=== PATIENT | female | born 1955 | race Caucasian/White ===

== ENCOUNTER 2019-04-18 08:38 | Day surgery (SDC) | payer BC ==
[2019-04-18] VITALS (11 sets, daily range): BP systolic 114–147; BP diastolic 53–72; PULSE 51–61; TEMP 97.2–98.2
[~2019-04-18] VITALS: Ht 165.1 cm; Wt 100.0 kg
[~2019-04-18 08:38] MED LIST: CEFTIN500 MG PO; ELIQUIS 5MG PO; FOLIC ACID0.8 MG PO; INDERAL80 MG PO; LASIX 20MG TABL20 MG PO; LIORESAL 1010 MG/TAB PO; MAGNESIUM500 MG PO; METHOTREXA2.5 MG/TAB PO; MIRALAX PA17 GM/Dose PO; MYCELEX10 MG/TAB TL; NYSTATIN POWDER15 GM TOP; PERCOCET 325 MG1 TA2 PO; PERIDEX (CHLOR480 ML MM; PRILOSEC 20MG20 MG PO; SYMMETREL100 MG PO; SYNTHROID0.088 MG/T PO; TAMOXIFEN CITRA20 MG PO; VESICARE10 MG PO; VITAMIN D31000 I1 PO
[2019-04-18] MEDS ORDERED: NEURONTIN300 MG/CAP PO (10:30)
--- NOTE | 2019-04-18 17:30 | NUR ---
Patient alert and oriented, answers questions appropriately. See assessment. Suprapubic catheter in place, secured to leg and draining bloody drainage. Weakness noted to right side. Patient is wheelchair bound. No c/o at this time.
--- NOTE | 2019-04-19 01:16 | NUR ---
Patient noted to have suprapubic catheter to lower abdomen. Draining red, slightly bloody drainage. Minimal clots noted. Awaiting patient to have a bowel movement. No results from mag citrate yet. Will continue to monitor patient. Patient repositioned q2 hours.
[2019-04-19 03:44] VITALS: BP 130/62; PULSE 65; TEMP 98
--- NOTE | 2019-04-19 06:13 | NUR ---
Urine noted to be yellow from suprapubic catheter. No bowel movement at this time. Will pass this on to day shift nurse.
--- NOTE | 2019-04-19 08:00 | NUR ---
Patient in bed resting. Alert and oriented x 3. Shift assessment complete. Patient had a large BM this AM, pericare provided. Suprapubic cath with clear yellow urine present. Gauze dressing to catheter cite is CDI. Denies pain or further needs at this time.
[2019-04-19 08:44] VITALS: BP 131/58; PULSE 69; TEMP 98.3
[2019-04-19 12:37] VITALS: BP 113/56; PULSE 65; TEMP 97.6
--- NOTE | 2019-04-19 14:00 | NUR ---
Discharge education provided to patient on suprapubic catheter. Educated on signs and symptoms of infection as well as constipation. All questions answered. Patient to wheelchair by saira lift x 2 assist. Denies pain or further needs at this time. INT to left hand discontinued. Catheter tip intact. Tolerated procedrure well.
--- NOTE | 2019-04-19 15:19 | NUR ---
Plan: To return home in [facility] with her care provider Romain and DPOA. Assess: Patient reports that she sees Dr. Neal as her PCP and has various DME, motorized chairm left at home , swing, and bed. Patient indicated that she uses [facility] for medications in [place]. Transportation is provided by Mr. Hoyos. Patient declined the need for HHS. Action: Nothing follows.
== END 2019-04-19 14:00 | disposition home or self-care (01) ==
LOC: SDCO 08:38 → SURG 12:33 → SDCO 04-19 14:00
DX: N31.9 Neuromuscular dysfunction of bladder, unspecified (principal); N39.41 Urge incontinence; N30.20 Other chronic cystitis without hematuria; G35 Multiple sclerosis; N32.81 Overactive bladder; I10 Essential (primary) hypertension; K21.9 Gastro-esophageal reflux disease without esophagitis; Z80.3 Family history of malignant neoplasm of breast; Z87.440 Personal history of urinary (tract) infections; Z90.710 Acquired absence of both cervix and uterus; Z90.6 Acquired absence of other parts of urinary tract; Z79.01 Long term (current) use of anticoagulants; Z88.1 Allergy status to other antibiotic agents; Z88.8 Allergy status to other drugs, medicaments and biological substances; Z88.3 Allergy status to other anti-infective agents; Z88.7 Allergy status to serum and vaccine; Z91.048 Other nonmedicinal substance allergy status; Z86.718 Personal history of other venous thrombosis and embolism; Z85.3 Personal history of malignant neoplasm of breast
CPT/HCPCS: OP; C1769; J0690; J2405; J2704; J3010; J7120

== ENCOUNTER 2019-07-22 11:47 | Emergency (ER) | payer BC ==
[~2019-07-22 11:47] MED LIST changes: +NEURONTIN300 MG/CAP PO
[2019-07-22 11:57] VITALS: TEMP 95.7
[2019-07-22 16:14] VITALS: BP 128/71; PULSE 62
== END 2019-07-22 16:16 | disposition home or self-care (01) ==
LOC: COL.ER 11:47
DX: T83.198A Other mechanical complication of other urinary devices and implants, initial encounter (principal); E03.9 Hypothyroidism, unspecified; Z86.718 Personal history of other venous thrombosis and embolism; Z90.710 Acquired absence of both cervix and uterus
CPT/HCPCS: 3306; C1769

== ENCOUNTER 2019-08-12 16:05 | Day surgery (SDC) | payer BC ==
[~2019-08-12] VITALS: Ht 165.1 cm; Wt 109.0 kg
--- NOTE | 2019-08-12 15:52 | NUR ---
Dr. Smith here for suprapubic catheter change.
--- NOTE | 2019-08-12 16:15 | NUR ---
Dr. Smith is done with the procedure and the patient verbalizes a desire to be discharged home. The patient denies wanting any to eat or drink before going home. The patient was assisted to get dressed with the help of two nurses and appeared to tolerate the activity well. The patient was transferred back to the home wheelchair with the use of a total lift and appeared to tolerate the activity well. The patient's assisted the nurse to get the patient situated in her wheelchair appropriately.
--- NOTE | 2019-08-12 16:20 | NUR ---
Discharge instructions were reviewed with the patient and her . They both verbalized understanding and have no questions for the nurse at this time. The patient is dressed and had no IV in place for the procedure to be removed so she is ready to be escorted out.
--- NOTE | 2019-08-12 16:25 | NUR ---
The patient was escorted out via her home wheelchair to a private vehicle by IVONNE Forbes. The patient's belongings and discharge paperwork were sent with him. The patient's is present to drive her home.
== END 2019-08-12 16:25 | disposition home or self-care (01) ==
LOC: SDCO 16:05
DX: T83.29XA Other mechanical complication of graft of urinary organ, initial encounter (principal); N31.9 Neuromuscular dysfunction of bladder, unspecified; N39.41 Urge incontinence; R35.0 Frequency of micturition; G35 Multiple sclerosis; Z85.3 Personal history of malignant neoplasm of breast; Z90.710 Acquired absence of both cervix and uterus; Z90.5 Acquired absence of kidney; Z79.899 Other long term (current) drug therapy; Z80.9 Family history of malignant neoplasm, unspecified; Z83.3 Family history of diabetes mellitus; Z82.49 Family history of ischemic heart disease and other diseases of the circulatory system

== ENCOUNTER 2019-08-26 09:26 | Inpatient (IN) | payer BC ==
[~2019-08-26] VITALS: Ht 165.1 cm; Wt 112.1 kg
[2019-08-26 10:13] LABS: HEMATOCRIT 46.6 % (37.0-47.0); HEMOGLOBIN 15.2 g/dl (12.5-16.0); MEAN CELL VOLUME 94 fl (80.0-100.0); MEAN CORPUSCULAR HEMOGLOBIN 31 pg (27.0-31.0); MEAN CORPUSCULAR HGB CONC 33 g/dl (33.0-37.0); MEAN PLATELET VOLUME 10.5 fl (7.4-10.4); PLATELET COUNT 286 K/mm3 (130-400); RED BLOOD COUNT 4.95 M/mm3 (4.10-5.30); REDCELL DISTRIBUTION WIDTH-CV 17.5 % (11.5-14.5)
[2019-08-26 10:39] LABS: BAND 1 % (0-10); EOSINOPHIL 1 % (0-4); LYMPHOCYTE 8 % (20.0-51.0); NEUTROPHILS 81 % (42.0-75.2); PLATELET ESTIMATE NORMAL (NORMAL)
[2019-08-26 10:43] LABS: COLLECTION METHOD CATHETER
[2019-08-26] MEDS ORDERED: TEGRETOL 2200 MG/TA1 PO (10:50)
[2019-08-26 10:56] LABS: MUCOUS Present /lpf; PH 7 (5-8); SQUAMOUS EPITHELIAL None Seen /hpf; URINE APPEARANCE Hazy; URINE BACTERIA Many /hpf; URINE BILIRUBIN Negative (NEGATIVE); URINE BLOOD 3+ (NEGATIVE); URINE COLOR Yellow; URINE GLUCOSE Negative (NEGATIVE); URINE KETONE Negative (NEGATIVE); URINE LEUKOCYTE ESTERASE 3+ (NEGATIVE); URINE NITRATE Negative (NEGATIVE); URINE PROTEIN(semi-quant) Negative (NEGATIVE); URINE RBC >50 /hpf; URINE UROBILINOGEN Negative (NEGATIVE)
[2019-08-26 13:12] LABS: ALBUMIN 3.4 gm/dL (3.5-5.0); BILIRUBIN,TOTAL 0.4 mg/dL (0.0-1.0); CALCIUM 9.1 mg/dL (8.4-10.2); CREATININE, serum 0.88 (0.52-1.25); TOTAL PROTEIN 6.7 gm/dL (6.4-8.2)
[2019-08-26 15:34] VITALS: BP 140/90; PULSE 104; TEMP 97.8
--- NOTE | 2019-08-26 15:34 | NUR ---
Patient arrives to medical room 357 via ED cart and is transferred to bed. Assessment and vitals as charted. Care assumed.
[2019-08-26] MEDS ORDERED: NORCO 325 MG-51 TAB PO (15:50)
[2019-08-26] MEDS ORDERED: OMNICEF 300MG300 MG PO (15:51)
--- NOTE | 2019-08-26 16:02 | NUR ---
Dr. Murphy notified of patient arrival
[2019-08-26 16:15] VITALS: BP 140/90; PULSE 103; TEMP 97.8
[2019-08-26 19:40] VITALS: BP 132/72; PULSE 106; TEMP 99
--- NOTE | 2019-08-26 20:00 | NUR ---
Report received from IVONNE Ridley. Assessment complete. Alert and oriented x4. Drowsy but arousable. Denies any pain or discomfort at this time. Meds administered as ordered. PICC to MOHAN intact with fluids infusing. RT arm restiction in place. Suprapubic and indwelling fernandez catheter in place. Dressing to suprapubic CDI.Needs met at this time. Call light in place.
[2019-08-27] VITALS (7 sets, daily range): BP systolic 125–159; BP diastolic 72–92; PULSE 71–124; TEMP 98–98.2
--- NOTE | 2019-08-27 05:45 | NUR ---
Pt unevenful during this shift. Meds administered as ordered. Gill draining and checked. Denies any pain or discomfort at this time. alert and arousable. oriented to self, place, and situation. Unnable to verbalie current year. Call light juany kwok.
[2019-08-27 06:37] LABS: CALCIUM 8.8 mg/dL (8.4-10.2); CREATININE, serum 0.73 (0.52-1.25); POTASSIUM 3.4 mmol/L (3.4-5.0)
[2019-08-27 06:43] LABS: BASO % 0.3 % (0.0-2.0); EOS # 0.1 (0.0-0.7); EOS % 0.8 % (0-4.0); GRAN # 7.6 (1.4-6.5); GRAN % 68.3 % (42.2-75.2); LYMPH # 2.1 (1.2-3.4); LYMPH % 18.9 % (20.0-51.0); MEAN CELL VOLUME 96 fl (80.0-100.0); MEAN CORPUSCULAR HGB CONC 32 g/dl (33.0-37.0); MEAN PLATELET VOLUME 10.7 fl (7.4-10.4); MONO # 1.3 (0.1-0.6); MONO % 11.3 % (1.7-9.3); PLATELET COUNT 261 K/mm3 (130-400); RED BLOOD COUNT 3.82 M/mm3 (4.10-5.30); REDCELL DISTRIBUTION WIDTH-CV 17.7 % (11.5-14.5)
[2019-08-27 06:45] LABS: HEMATOCRIT 36.5 % (37.0-47.0); HEMOGLOBIN 11.7 g/dl (12.5-16.0); MEAN CORPUSCULAR HEMOGLOBIN 31 pg (27.0-31.0)
--- NOTE | 2019-08-27 07:09 | NUR ---
Report given to IVONNE Borrego.
--- NOTE | 2019-08-27 08:16 | NUR ---
Patient resting in bed at this time. Awakens easily but is drowsy between conversations. Patient is alert and oriented x 3; only missing the day of the month. She denies any c/o pain and/or discomfort. Skin w/d. Color pink. Lungs CTA with resp even/unlabored. HR strong/tachy in nature. Abd obese, soft with bowel sounds x 4 quads. PPP. Mild non-pitting edema. Gill patent with clear yellow urine. Patient also has supra pubic that is intact but has no urine output. patient has consult with urology. IV fluids infusing at 150/hr. Patient resting comfortable. Call light in place. Bed rails up x 2
--- NOTE | 2019-08-27 13:25 | NUR ---
Patient off the floor at this time for CT scan
--- NOTE | 2019-08-27 13:51 | NUR ---
Guest Services Manager met with patient and called patient's , Sidney (ph#[phone]) to complete initial intake and discuss discharge plan. Patient lives in [place] with her and sees Dr. Neal for primary care. Patient uses a power chair and reports that to get into power chair, patient requires a sling and lift. Patient does not have Advance Directives in EMR and patient's reports if he can locate a copy he will bring it in. Patient's states he is hopeful patient can return home upon discharge. SW to continue to follow to ensure safe discharge.
--- NOTE | 2019-08-27 15:15 | NUR ---
Called to patients room by staff. Patient yelling out in pain. When questioned patient she could not localize pain but was able to tell this nurse that she was hurting. Call placed to MARC Appiah who is coming to see patient.
--- NOTE | 2019-08-27 15:45 | NUR ---
Patient given Baclofen as per orders.
--- NOTE | 2019-08-27 16:47 | NUR ---
1610 - No relief with Baclofen at this time. Patient given Hydrocodone as per PRN orders. Will continue to monitor pain and the relief recieved from medication
--- NOTE | 2019-08-27 18:04 | NUR ---
Dr. Schwab called for reminder of consult written yesterday by Dr. Murphy. Dr Schwab will discuss with Dr. Smith and a provider will see the patient.
--- NOTE | 2019-08-27 18:07 | NUR ---
Patient states pain is much better. Rates pain 2/10 at this time. IV fluids continue. Gill continues to drain clear yellow urine. No output thus far from supra pubic catheter
[2019-08-28 03:36] VITALS: BP 132/50; PULSE 84
[2019-08-28 05:52] LABS: BASO # 0.1 (0.0-0.2); BASO % 0.4 % (0.0-2.0); EOS # 0.2 (0.0-0.7); EOS % 1.5 % (0-4.0); GRAN % 64.8 % (42.2-75.2); HEMOGLOBIN 10.3 g/dl (12.5-16.0); LYMPH # 2.6 (1.2-3.4); LYMPH % 20.6 % (20.0-51.0); MEAN CELL VOLUME 95 fl (80.0-100.0); MEAN CORPUSCULAR HEMOGLOBIN 30 pg (27.0-31.0); MEAN CORPUSCULAR HGB CONC 32 g/dl (33.0-37.0); MEAN PLATELET VOLUME 10.6 fl (7.4-10.4); MONO # 1.5 (0.1-0.6); MONO % 12.1 % (1.7-9.3); PLATELET COUNT 215 K/mm3 (130-400); RED BLOOD COUNT 3.43 M/mm3 (4.10-5.30); REDCELL DISTRIBUTION WIDTH-CV 17.3 % (11.5-14.5)
[2019-08-28 05:53] LABS: HEMATOCRIT 32.6 % (37.0-47.0)
[2019-08-28 05:58] LABS: CALCIUM 8.7 mg/dL (8.4-10.2); CREATININE, serum 0.71 (0.52-1.25); POTASSIUM 3.4 mmol/L (3.4-5.0)
[2019-08-28 07:25] VITALS: BP 186/82; PULSE 117; TEMP 99.6
--- NOTE | 2019-08-28 09:51 | NUR ---
Pt awake and alert upon entry, noticable weakness on right side, shift assessments complete, left Pt call light in reach, bed in lowest position.
--- NOTE | 2019-08-28 10:00 | NUR ---
Technical Writer attended rounds with the team. Patient states her eyes hurt today. SW to continue to follow to ensure safe discharge.
[2019-08-28 11:36] VITALS: BP 151/73; PULSE 112; TEMP 99.1
--- NOTE | 2019-08-28 12:13 | NUR ---
First visit from the campaign management specialist. No needs right now.
--- NOTE | 2019-08-28 14:02 | NUR ---
Pt reports feeling nauseated and crying out. Petra CHAVEZ notified and will enter order.
--- NOTE | 2019-08-28 14:54 | NUR ---
Zofran was ordered and given. Pt was a sleep at last check.
[2019-08-28 15:50] VITALS: BP 151/80; PULSE 117; TEMP 99.7
--- NOTE | 2019-08-28 16:53 | NUR ---
Greenhouse Superintendent spoke with patient's , Sidney who reports they receive home health services from [facility]. NC GABRIELLA assists patient with bathing and Sidney provides support for all other ADLS. Plan is for patient to return home upon discharge.
--- NOTE | 2019-08-28 19:49 | NUR ---
Pt resting in room today, noted leakage fron fernandez into the bed this afternnoon, complete bed change and bath provided, no C/O pain today, VS have remained stable.
--- NOTE | 2019-08-28 20:00 | NUR ---
Report received from IVONNE Mccord. Assessment complete. Alert and oriented x4. Denies any pain or discomfort at this time. Medication administered as ordered. Suprapubic catheter dressing in place, CDI, non-draining. Indwelling fernandez catheter in place, draining minimal hazy yellow urine. PICC to MOHAN dressing CDI, fluids infusing. Tele monitor in place, leads checked and replaced. Needs met. Call light within reach.
[2019-08-28 20:17] VITALS: BP 162/94; PULSE 106; TEMP 97.7
[2019-08-28 21:32] VITALS: BP 153/77
[2019-08-29 00:36] VITALS: BP 156/61; PULSE 108; TEMP 98.5
[2019-08-29 05:00] VITALS: BP 138/65; PULSE 101; TEMP 98.4
--- NOTE | 2019-08-29 05:18 | NUR ---
Pt uneventful during this shift. Needs met. Call light within reach.
--- NOTE | 2019-08-29 06:46 | NUR ---
Report given to IVONNE Mccord.
[2019-08-29 07:34] VITALS: BP 144/62; PULSE 106; TEMP 98.5
--- NOTE | 2019-08-29 07:46 | NUR ---
Called and received verbal permission for Anuja Cooley to perforn a cystoscopy and replace her supbrapubic catheter.
[2019-08-29 09:18] LABS: CALCIUM 8.5 mg/dL (8.4-10.2); CREATININE, serum 0.63 (0.52-1.25); POTASSIUM 3.5 mmol/L (3.4-5.0)
[2019-08-29 09:19] LABS: BASO % 0.3 % (0.0-2.0); EOS # 0.2 (0.0-0.7); EOS % 2.3 % (0-4.0); GRAN # 5.4 (1.4-6.5); GRAN % 56.6 % (42.2-75.2); HEMOGLOBIN 10.3 g/dl (12.5-16.0); LYMPH # 2.5 (1.2-3.4); LYMPH % 26.1 % (20.0-51.0); MEAN CELL VOLUME 96 fl (80.0-100.0); MEAN CORPUSCULAR HEMOGLOBIN 31 pg (27.0-31.0); MEAN CORPUSCULAR HGB CONC 32 g/dl (33.0-37.0); MEAN PLATELET VOLUME 10.9 fl (7.4-10.4); MONO # 1.4 (0.1-0.6); MONO % 14.3 % (1.7-9.3); PLATELET COUNT 221 K/mm3 (130-400); RED BLOOD COUNT 3.37 M/mm3 (4.10-5.30)
[2019-08-29 09:21] LABS: HEMATOCRIT 32.5 % (37.0-47.0)
--- NOTE | 2019-08-29 09:30 | NUR ---
Pt awake and alert this morning, spouse in room, no C/O pain at this time, shift assessments complete, left Pt call light in reach, bed in lowest position.
[2019-08-29 13:29] VITALS: BP 150/70; PULSE 94; TEMP 97.9
--- NOTE | 2019-08-29 15:47 | NUR ---
Certified Ophthalmic Technician was approached by patient's who inquired about EMS transport home. SW advised it would be on a private pay basis. SW contacted [employer] of [facility] to inquire about pricing and left a message. SW to continue to follow.
[2019-08-29 18:23] VITALS: BP 167/76; PULSE 97; TEMP 98.2
--- NOTE | 2019-08-29 18:40 | NUR ---
Pt resting in room today, no major C/O pain, suprapubic catheter draining normally with good output, VS have remained stable.
--- NOTE | 2019-08-29 19:40 | NUR ---
Report rcvd from IVONNE Mccord. Assessment completed. Pt has no c/o pain or discomfort at this time. Suprapubic catheter is draining clear yellow urine without problems. No further concern at this time. Call light and personal belongings within reach.
[2019-08-29 21:39] VITALS: BP 141/73; PULSE 111; TEMP 98.5
[2019-08-30] VITALS (7 sets, daily range): BP systolic 119–174; BP diastolic 52–87; PULSE 84–109; TEMP 97.9–99.8
[2019-08-30 06:53] LABS: BASO % 0.3 % (0.0-2.0); EOS # 0.3 (0.0-0.7); EOS % 3.8 % (0-4.0); GRAN # 5.5 (1.4-6.5); GRAN % 60.6 % (42.2-75.2); HEMOGLOBIN 10.6 g/dl (12.5-16.0); LYMPH % 22.3 % (20.0-51.0); MEAN CELL VOLUME 95 fl (80.0-100.0); MEAN CORPUSCULAR HEMOGLOBIN 31 pg (27.0-31.0); MEAN CORPUSCULAR HGB CONC 32 g/dl (33.0-37.0); MEAN PLATELET VOLUME 10.4 fl (7.4-10.4); MONO # 1.1 (0.1-0.6); MONO % 12.6 % (1.7-9.3); PLATELET COUNT 237 K/mm3 (130-400); RED BLOOD COUNT 3.44 M/mm3 (4.10-5.30); REDCELL DISTRIBUTION WIDTH-CV 16.5 % (11.5-14.5)
[2019-08-30 06:56] LABS: HEMATOCRIT 32.7 % (37.0-47.0)
[2019-08-30 07:03] LABS: CALCIUM 8.6 mg/dL (8.4-10.2); CREATININE, serum 0.52 (0.52-1.25); MAGNESIUM 1.7 mg/dL (1.6-2.3); POTASSIUM 3.3 mmol/L (3.4-5.0)
--- NOTE | 2019-08-30 08:41 | NUR ---
Report given to IVONNE Mccord. Pt had an uneventful night. Pt slept well, and had no c/o pain or discomfort throughout the night. No further concerns at this time. Transfer of care to IVONNE Mccord completed.
--- NOTE | 2019-08-30 09:58 | NUR ---
Pt napping upon entry, no C/O pain at this time, shift assessments complete, left Pt call light in reach, bed in lowest position.
--- NOTE | 2019-08-30 18:32 | NUR ---
Pt resting tin the room today, no C/O pain throughout the day, Pt had large bowel movement earlier in the day, VS have remained stable.
[2019-08-31 03:38] VITALS: BP 156/69; PULSE 90; TEMP 98.4
[2019-08-31 08:11] VITALS: BP 148/64; PULSE 100; TEMP 98.6
--- NOTE | 2019-08-31 11:37 | NUR ---
Pt napping upon entry, easily awakened, no C/O pain this morning, shift assessment complete, left Pt call light in reach, bed in lowest position.
[2019-08-31 12:04] VITALS: BP 126/62; PULSE 71; TEMP 98.6
[2019-08-31 17:48] VITALS: BP 133/67; PULSE 80; TEMP 98.4
--- NOTE | 2019-08-31 19:08 | NUR ---
Report rcvd from IVONNE Mccord.
--- NOTE | 2019-08-31 19:30 | NUR ---
Pt rested in the room today, no C/O pain, Pt had 1 bout of loose stool this afternoon, VS have remained stable.
[2019-08-31 20:38] VITALS: BP 98/53; PULSE 81; TEMP 98.1
[2019-09-01] VITALS (7 sets, daily range): BP systolic 119–156; BP diastolic 55–82; PULSE 80–93; TEMP 97.9–98.7
--- NOTE | 2019-09-01 06:41 | NUR ---
Pt had uneventful night. Did c/o pain, administered pain medication per MAR.
[2019-09-01 08:54] LABS: CALCIUM 8.7 mg/dL (8.4-10.2); CREATININE, serum 0.58 (0.52-1.25); MAGNESIUM 1.8 mg/dL (1.6-2.3); POTASSIUM 3.9 mmol/L (3.4-5.0)
--- NOTE | 2019-09-01 13:59 | NUR ---
GEORGE faxed updates to Jose QUIROZ. non emergency services ambulance driver will continue to follow.
--- NOTE | 2019-09-01 14:28 | NUR ---
Pt requesting pureed diet 2nd to pain she believes to be related to her history of trigeminal neuralgia. Pt's sister reports this pain to nursing, also discussing concern for immediate dc planning along with usp goal evaluation as she feels Oksana's lack of appetite may signal further decline in current functional status. Social work and case management following.
--- NOTE | 2019-09-01 16:00 | NUR ---
Incontinent of med amount of stool. Sandy care provided, barrier cream applied. Right int thigh with 1cm fluid-filled blister intact.
--- NOTE | 2019-09-01 18:57 | NUR ---
Pt has been nauseated throughout shift. Enc po intake with little success. Takes small sips of nutrition supplements. Able to swallow pills after discussion. States she feels reglan is helping somewhat with nausea.
--- NOTE | 2019-09-01 20:10 | NUR ---
Shift assessment complete. Pt resting in bed, awake, a&o, cooperative c cares. Pt continued c/o jaw pain rad to shoulder; PRN pain pediatrician/medical doctor per pt req. Pt also c/o continued nausea, ref some HS meds because of this. Denies any other c/o. PICC noted to L upper arm, patent c good blood return. SP cath to DD, s complication. Pt denies further needs at this time. Call light in reach, bed alarm on. Will continue to monitor.
[2019-09-02 02:57] VITALS: BP 155/74; PULSE 103; TEMP 98.2
[2019-09-02 06:45] LABS: CALCIUM 8.6 mg/dL (8.4-10.2); CREATININE, serum 0.58 (0.52-1.25); POTASSIUM 3.7 mmol/L (3.4-5.0)
[2019-09-02 07:20] LABS: BASO # 0.1 (0.0-0.2); BASO % 0.6 % (0.0-2.0); EOS # 0.3 (0.0-0.7); EOS % 2.8 % (0-4.0); GRAN # 5.7 (1.4-6.5); GRAN % 64.5 % (42.2-75.2); HEMOGLOBIN 10.2 g/dl (12.5-16.0); LYMPH # 1.8 (1.2-3.4); LYMPH % 20.5 % (20.0-51.0); MEAN CELL VOLUME 96 fl (80.0-100.0); MEAN CORPUSCULAR HEMOGLOBIN 31 pg (27.0-31.0); MEAN CORPUSCULAR HGB CONC 32 g/dl (33.0-37.0); MEAN PLATELET VOLUME 10.2 fl (7.4-10.4); PLATELET COUNT 298 K/mm3 (130-400); RED BLOOD COUNT 3.33 M/mm3 (4.10-5.30); REDCELL DISTRIBUTION WIDTH-CV 16.3 % (11.5-14.5)
[2019-09-02 07:21] LABS: HEMATOCRIT 31.9 % (37.0-47.0)
[2019-09-02 07:53] VITALS: BP 169/83; PULSE 95; TEMP 98
[2019-09-02] MEDS ORDERED: REGLAN 5MG T5 MG/TAB PO (09:44)
[2019-09-02] MEDS ORDERED: PROBIOTIC ACID1 EAC3 PO (09:44)
[2019-09-02] MEDS ORDERED: COLACE 100100 MG/CAP PO (09:47)
[2019-09-02] MEDS ORDERED: MIRALAX510G PO (09:47)
[2019-09-02] MEDS ORDERED: MACROBID 1100 MG/CAP PO (09:51)
--- NOTE | 2019-09-02 10:53 | NUR ---
The patient it to discharge today, 09/02 with continuing nursing with [facility] services and with the addition of PT/OT/ST to eval and treat. The patient and the patient's are wanting to be transported via [facility]. GEORGE contacted Juan Carlos with [facility] and he reported the cost would be $1360.00. GEORGE informed the patient and the patient's and both were agreeable to paying the $1360.00. GEORGE to fax discharge order to Adali at [facility] . There are no additional needs at this time.
--- NOTE | 2019-09-02 10:59 | NUR ---
The patient will be transported at 1400.
--- NOTE | 2019-09-02 14:00 | NUR ---
patient discharging home, discharge orders discussed with the patient and her , instructed to finish cours of ABX and take other meds as prescribed, scipts sent to pharmacy for her and has already picked them up, PICC removed by [facility], I irrigated her Suprapubic catheter with 60cc saline, patient is leaving with [facility]
== END 2019-09-02 16:41 | disposition home health service (06) | DRG 872 ==
LOC: COL.ER 09:26 → MEDICAL 11:07 → EDBEDREQ 14:49 → MEDICAL 08-27 19:00
PROVIDERS: Family Medicine; Nurse Practitioner Family; Physician Assistant; ADMIT Internal Medicine
PROC: 02HV33Z Insertion of Infusion Device into Superior Vena Cava, Percutaneous Approach (ICD-10-PCS; principal; 2019-08-26)
PROC: 0T9B80Z Drainage of Bladder with Drainage Device, Via Natural or Artificial Opening Endoscopic (ICD-10-PCS; 2019-08-29)
PROC: 0TPB80Z Removal of Drainage Device from Bladder, Via Natural or Artificial Opening Endoscopic (ICD-10-PCS; 2019-08-29)
PROC: 02PYX3Z Removal of Infusion Device from Great Vessel, External Approach (ICD-10-PCS; 2019-09-02)
DX: A41.9 Sepsis, unspecified organism (principal); N39.0 Urinary tract infection, site not specified; G93.49 Other encephalopathy; E46 Unspecified protein-calorie malnutrition; N31.9 Neuromuscular dysfunction of bladder, unspecified; B96.89 Other specified bacterial agents as the cause of diseases classified elsewhere; E87.6 Hypokalemia; G35 Multiple sclerosis; K59.00 Constipation, unspecified; I10 Essential (primary) hypertension; K21.9 Gastro-esophageal reflux disease without esophagitis; T83.098A Other mechanical complication of other urinary catheter, initial encounter; R33.9 Retention of urine, unspecified; E78.5 Hyperlipidemia, unspecified; E03.9 Hypothyroidism, unspecified; E66.9 Obesity, unspecified; Z86.718 Personal history of other venous thrombosis and embolism; Z85.3 Personal history of malignant neoplasm of breast; Z90.710 Acquired absence of both cervix and uterus; Z90.13 Acquired absence of bilateral breasts and nipples; Z88.1 Allergy status to other antibiotic agents; Z88.3 Allergy status to other anti-infective agents; Z88.7 Allergy status to serum and vaccine; Z91.048 Other nonmedicinal substance allergy status; Z91.018 Allergy to other foods
CPT/HCPCS: 99223-AI; 99232-AI; 99233-AI; 99239; A4216; C1751; J0692; J1650; J2405; J2543; J3480; J7030; Q9967

== ENCOUNTER 2020-01-01 10:51 | Day surgery (SDC) | payer BC ==
[~2020-01-01 10:51] MED LIST changes: +COLACE 100100 MG/CAP PO; +MACROBID 1100 MG/CAP PO; +MIRALAX510G PO; +NORCO 325 MG-51 TAB PO; +OMNICEF 300MG300 MG PO; +PROBIOTIC ACID1 EAC3 PO; +REGLAN 5MG T5 MG/TAB PO; +TEGRETOL 2200 MG/TA1 PO
[2020-01-01 12:45] VITALS: BP 152/64; PULSE 64; TEMP 97.1
--- NOTE | 2020-01-01 13:11 | NUR ---
Pt arrived via personal electric wheelchair approximately 1130. Pt A&O. Required total lift to transfer pt to cart in [facility]. Dr Smith was ready for pt as soon as pt arrived, staff worked together to get her prepared for bedside procedure. After procedure VS obtained and stable. Pt denied pain or other complaints. x3 assist to replace pts pants and place sling for total lift back in to personal electric wheelchair. IVONNE Acuña walked beside pt in to private vehicle with spouse to drive pt home.
== END 2020-01-01 13:11 | disposition home or self-care (01) ==
LOC: SDCO 10:51
DX: T83.198A Other mechanical complication of other urinary devices and implants, initial encounter (principal); N31.9 Neuromuscular dysfunction of bladder, unspecified; R35.0 Frequency of micturition; N39.0 Urinary tract infection, site not specified; N39.41 Urge incontinence; G35 Multiple sclerosis; Z96.82 Presence of neurostimulator; Z79.899 Other long term (current) drug therapy; Z88.1 Allergy status to other antibiotic agents; Z88.8 Allergy status to other drugs, medicaments and biological substances; Z85.3 Personal history of malignant neoplasm of breast; Z90.5 Acquired absence of kidney
CPT/HCPCS: C1769; C1894